=== PATIENT | male | born 1990 | race Two or more races ===

== ENCOUNTER 2023-05-06 12:34 | Emergency (ER) | payer OTHER ==
[~2023-05-06] VITALS: Ht 170.2 cm; Wt 140.5 kg
[2023-05-06 12:58] VITALS: BP 163/88; PULSE 96; RESP 18; TEMP 98.4; O2SAT 96
[2023-05-06] MEDS ORDERED: NEOMYCIN-BACITRACIN-POLYM 15GM TOP OINT TOP ONE (13:04)
[2023-05-06] MEDS ORDERED: TETANUS-DIPTH-ACEL PERTUSSIS 0.5ML SYR Tdap IM ONE (13:15)
[2023-05-06] MEDS ORDERED: KETOROLAC TROMETH 60MG/2ML VIAL IM ONE (13:15)
[2023-05-06] MEDS ORDERED: CEPH500T PO (13:38)
[2023-05-06] MEDS ORDERED: IBUP-1456 PO (13:38)
[2023-05-06] MEDS ORDERED: NEOMYCIN-BACITRACIN-POLYM 15GM TOP OINT TOP SCH (22:00)
== END 2023-05-06 14:12 | disposition home or self-care (01) ==
LOC: ER 12:34
DX: S61.304A Unspecified open wound of right ring finger with damage to nail, initial encounter (principal); W45.8XXA Other foreign body or object entering through skin, initial encounter; Y93.89 Activity, other specified; Y92.89 Other specified places as the place of occurrence of the external cause; Y99.8 Other external cause status
CPT/HCPCS: 73140; 90471; 90715; 96372; 99284; J1885

== ENCOUNTER 2023-05-08 11:44 | Emergency (ER) | payer OTHER, MEDICAID ==
[~2023-05-08] VITALS: Ht 170.2 cm; Wt 130.0 kg
[~2023-05-08 11:44] MED LIST: CEPH500T PO; IBUP-1456 PO
[2023-05-08] MEDS ORDERED: MUPI2CRE17 EX (15:09)
[2023-05-08] MEDS ORDERED: NEOMYCIN-BACITRACIN-POLYM UNITDOSE PKG TOP OINT TOP ONE ×2 (15:15→15:16)
[2023-05-08 15:45] VITALS: BP 135/78; PULSE 61; RESP 18; TEMP 98.2; O2SAT 98
== END 2023-05-08 16:45 | disposition home or self-care (01) ==
LOC: ER 11:44
DX: S61.304D Unspecified open wound of right ring finger with damage to nail, subsequent encounter (principal); L08.9 Local infection of the skin and subcutaneous tissue, unspecified; Z79.1 Long term (current) use of non-steroidal anti-inflammatories (NSAID); Z79.899 Other long term (current) drug therapy; X58.XXXD Exposure to other specified factors, subsequent encounter